=== PATIENT | male | born 1965 | race Caucasian/White ===

== ENCOUNTER 2018-06-27 04:11 | Emergency (ER) | payer MEDICAID ==
[~2018-06-27] VITALS: Ht 170.2 cm; Wt 91.0 kg
[2018-06-27] MEDS ORDERED: KETOROLAC 60MG/2ML VIAL IM STA (05:37)
[2018-06-27 07:39] VITALS: BP 147/75
== END 2018-06-27 07:40 | disposition home or self-care (01) ==
LOC: ER 04:11
DX: M54.5 Low back pain (principal)
CPT/HCPCS: 72100; 96372; 99284; J1885

== ENCOUNTER 2022-05-26 08:33 | Emergency (ER) | payer MEDICAID, OTHER ==
[~2022-05-26] VITALS: Ht 167.6 cm; Wt 93.0 kg
[2022-05-26 08:36] VITALS: BP 170/80
[2022-05-26] MEDS ORDERED: LOPERAMIDE HCL 2MG CAPSULE PO ONE (08:45)
[2022-05-26 09:21] LABS: BASOPHILS % 0.4 % (0.0-2.0); EOSINOPHILS % 0.3 % (0.0-5.0); HEMATOCRIT. 49.4 % (42.0-52.0); HEMOGLOBIN. 16.8 g/dL (14.0-18.0); LYMPHOCYTES % 15.8 % (20.0-50.0); MEAN CORPUSCULAR HEMOGLOBIN 28.4 pg (28.0-32.0); MEAN CORPUSCULAR VOLUME 83.7 fL (80.0-94.0); MEAN PLATELET VOLUME 8.5 fl (7.4-10.4); MONOCYTES % 9.3 % (2.0-8.0); NEUTROPHILS % 74.2 % (40.0-76.0); PLATELET 172 x1000/uL (130-400); RED CELL DISTRIBUTION WIDTH 12.8 % (11.6-14.6)
[2022-05-26 09:27] LABS: CLARITY URINE CLEAR (CLEAR); COLOR URINE DARK YELLOW (YELLOW); KETONES URINE NEGATIVE (NEGATIVE); LEUKOCYTE ESTERASE URINE TRACE (NEGATIVE); NITRITE URINE NEGATIVE (NEGATIVE); OCCULT BLOOD URINE NEGATIVE (NEGATIVE); PH URINE 5.5 (4.5-8.0); PROTEIN URINE 1+ (NEGATIVE); SPECIFIC GRAVITY URINE 1.027 (1.005-1.030); UROBILINOGEN URINE 0.2 E.U./dL (0.2-1.0)
[2022-05-26 09:30] LABS: CHLORIDE 107 mEq/L (98-107)
[2022-05-26 09:32] LABS: PROTHROMBIN TIME 10.5 sec (9.6-11.0)
[2022-05-26] MEDS ORDERED: LOPE2CAP MT (09:46)
[2022-05-26] MEDS ORDERED: AZIT500T8 MT (09:46)
== END 2022-05-26 09:58 | disposition home or self-care (01) ==
LOC: ER 08:33
DX: R19.7 Diarrhea, unspecified (principal)
CPT/HCPCS: 36415; 80053; 81003; 85025; 99283

== ENCOUNTER 2024-05-16 11:42 | Emergency (ER) | payer MEDICAID, OTHER ==
[~2024-05-16] VITALS: Ht 177.8 cm; Wt 87.0 kg
[~2024-05-16 11:42] MED LIST: AZIT500T8 MT; LOPE2CAP MT
[2024-05-16 11:49] VITALS: O2SAT 96
[2024-05-16] MEDS ORDERED: CYCL5TAB MT (12:25)
[2024-05-16] MEDS ORDERED: LIDO700A15 TP (12:26)
[2024-05-16] MEDS ORDERED: TOPUD MT (12:26)
[2024-05-16] MEDS ORDERED: IBUP-2028 MT (12:26)
[2024-05-16] MEDS: LIDOCAINE 5% PATCH TOP SCH (12:30)
[2024-05-16] MEDS: CYCLOBENZAPRINE 10MG TABLET PO ONE (12:30)
[2024-05-16] MEDS: ACETAMINOPHEN 325MG TABLET PO ONE (12:30)
[2024-05-16] MEDS: KETOROLAC 30MG/ML VIAL IM ONE (12:30)
[2024-05-16 13:23] VITALS: BP 132/87; PULSE 72; RESP 20; TEMP 36.72516; O2SAT 99
== END 2024-05-16 13:26 | disposition home or self-care (01) ==
LOC: ER 11:42
DX: S39.012A Strain of muscle, fascia and tendon of lower back, initial encounter (principal); I10 Essential (primary) hypertension; Z79.899 Other long term (current) drug therapy; X58.XXXA Exposure to other specified factors, initial encounter; Y93.89 Activity, other specified; Y92.89 Other specified places as the place of occurrence of the external cause; Y99.8 Other external cause status
CPT/HCPCS: 99284; 96372; J1885

== ENCOUNTER 2025-04-30 12:33 | Emergency (ER) | payer MEDICAID ==
[~2025-04-30] VITALS: Ht 170.2 cm; Wt 90.0 kg
[~2025-04-30 12:33] MED LIST changes: +CYCL5TAB3 MT; +IBUP-2028 MT; +LIDO-53 TP; +TOPUD MT
[2025-04-30 12:43] VITALS: O2SAT 96
[2025-04-30 15:12] VITALS: BP 125/88; PULSE 68; RESP 20; TEMP 36.7; O2SAT 98
== END 2025-04-30 15:14 | disposition home or self-care (01) ==
LOC: ER 12:33
DX: N43.41 Spermatocele of epididymis, single (principal); I10 Essential (primary) hypertension
CPT/HCPCS: 76870; 93976; 99284

== ENCOUNTER 2025-09-03 09:17 | Emergency (ER) | payer MEDICAID ==
[~2025-09-03] VITALS: Ht 175.3 cm; Wt 85.0 kg
[2025-09-03 09:20] VITALS: O2SAT 100
[2025-09-03 09:28] VITALS: BP 155/75; PULSE 74; RESP 19; TEMP 36.6; O2SAT 97
== END 2025-09-03 10:29 | disposition home or self-care (01) ==
LOC: ER 09:48
DX: L02.212 Cutaneous abscess of back [any part, except buttock and flank] (principal); I10 Essential (primary) hypertension
CPT/HCPCS: 99282

== ENCOUNTER 2025-09-23 13:35 | Emergency (ER) | payer MEDICAID ==
[2025-09-23 13:38] VITALS: PULSE 76; RESP 17; O2SAT 95
[2025-09-23 15:12] LABS: BASOPHILS % 0.7 % (0.0-2.0); EOSINOPHILS % 0.2 % (0.0-5.0); HEMATOCRIT. 43.0 % (42.0-52.0); HEMOGLOBIN. 14.7 g/dL (14.0-18.0); LYMPHOCYTES % 16.9 % (20.0-50.0); MEAN PLATELET VOLUME 8.7 fl (7.4-10.4); MONOCYTES % 6.0 % (2.0-8.0); NEUTROPHILS % 76.2 % (40.0-76.0); PLATELET 207 x1000/uL (130-400); RED BLOOD CELL COUNT 5.20 mill/uL (4.7-6.1); RED CELL DISTRIBUTION WIDTH 12.9 % (11.6-14.6)
[2025-09-23 15:27] LABS: CREATININE 1.0 mg/dL (0.6-1.3); UREA NITROGEN BLOOD 12 mg/dL (9-23)
[2025-09-23 15:28] LABS: PROTEIN TOTAL 7.0 g/dL (6.0-8.3)
[2025-09-23 15:29] LABS: ASPARTATE AMINOTRANSFERASE 20 IU/L (<34)
[2025-09-23 15:30] LABS: BILIRUBIN TOTAL 0.5 mg/dL (0.1-1.0)
[2025-09-23] MEDS ORDERED: HYDR-4622 TP (15:33)
[2025-09-23] MEDS ORDERED: HYDR25SU37 RC (15:33)
== END 2025-09-23 17:20 | disposition home or self-care (01) ==
LOC: ER 13:35
DX: K64.9 Unspecified hemorrhoids (principal); I10 Essential (primary) hypertension; Z79.899 Other long term (current) drug therapy
CPT/HCPCS: 36415; 80053; 85025; 99283